=== PATIENT | female | born 1970 | race Asian ===

== ENCOUNTER 2019-08-07 08:45 | Day surgery (SDC) | payer OTHER ==
[~2019-08-07] VITALS: Ht 152.4 cm; Wt 53.7 kg
[~2019-08-07 08:45] MED LIST: CIPRO 500MG TA500 MG PO; DAZIDOX10 MG PO; FERROUS SU325 MG/TAB PO; FLEXERIL 1010 MG/TAB PO; GLUCOPHAGE XR500 M1 PO; NEURONTIN100 MG/CAP PO; PRILOSEC 20MG20 MG PO; PRINIVIL10 MG PO; ROBAXIN 75750 MG/TAB PO; ULTRAM 50MG TAB50 MG PO; ZOFRAN 4MG T4 MG/TAB PO
[2019-08-07] MEDS ORDERED: LIPITOR 40MG TA40 MG PO (09:10)
[2019-08-07] MEDS ORDERED: PRIL40 PO (09:11)
[2019-08-07 09:13] VITALS: BP 127/85; PULSE 82; TEMP 98.4
[2019-08-07 11:35] VITALS: BP 133/96; PULSE 74; TEMP 97.5
--- NOTE | 2019-08-07 11:35 | NUR ---
pt to [facility] via cart from endo room, walked to chair, in room. pt keeps eyes closed but responds when talking to. call light in reach, no requests at this time
[2019-08-07 11:50] VITALS: BP 129/99; PULSE 72
--- NOTE | 2019-08-07 11:50 | NUR ---
con't same, pt remains sleepy, declines drink at this time, in room
[2019-08-07 12:05] VITALS: BP 134/86; PULSE 72
--- NOTE | 2019-08-07 12:20 | NUR ---
pt sits up in chair, more awake, reviewed discharge inst. with her and maryurie on followup care, results of biopsies, and activity for today with verbal understanding. int d'cd intact. pt dressed self, up in room, discharged via w/c to car at 1230
== END 2019-08-07 12:30 | disposition home health service (06) ==
LOC: SDCO 08:45
DX: Z12.11 Encounter for screening for malignant neoplasm of colon (principal); K64.8 Other hemorrhoids; K62.89 Other specified diseases of anus and rectum; K21.0 Gastro-esophageal reflux disease with esophagitis; K22.70 Barrett's esophagus without dysplasia; K44.9 Diaphragmatic hernia without obstruction or gangrene; I10 Essential (primary) hypertension; E11.9 Type 2 diabetes mellitus without complications; D50.0 Iron deficiency anemia secondary to blood loss (chronic); E78.00 Pure hypercholesterolemia, unspecified; F17.210 Nicotine dependence, cigarettes, uncomplicated; Z79.82 Long term (current) use of aspirin; Z79.84 Long term (current) use of oral hypoglycemic drugs; Z90.710 Acquired absence of both cervix and uterus
CPT/HCPCS: J2250; J2405; J3010; J7030